=== PATIENT | female | born 2000 | race Caucasian/White ===

== ENCOUNTER 2021-04-22 14:38 | Emergency (ER) | payer BC, SELFPAY ==
[~2021-04-22] VITALS: Ht 170.2 cm; Wt 72.2 kg
[2021-04-22 14:45] VITALS: BP 122/65
--- NOTE | 2021-04-22 15:04 | NUR ---
FIRST CONTACT: PSYCH EVAL FOR DEPRESSION X2 WKS, HX OF DEPR W SI/ANX, REPORTS SI- NO PLAN, DENIES SA/HI OR RECENT NEW STRESSORS. PT TO ROOM WITH STEADY GAIT. MOTHER OUTSIDE ROOM. KRISHNA BROWN WORK INSIDE ROOM EVALUATING PT.
[2021-04-22] MEDS ORDERED: LORazepam 1MG TABLET ONE (15:35)
[2021-04-22 15:43] LABS: BASOPHILS % (AUTO) 1 % (0-1); EOSINOPHILS % (AUTO) 1 % (1-7); LYMPHOCYTES % (AUTO) 33 % (22-44); MEAN CORPUSCULAR HEMOGLOBIN 30.7 pg (27.0-34.8); MEAN CORPUSCULAR HGB CONC 34.8 g/dL (32.4-35.8); MEAN PLATELET VOLUME 8.7 fL (7.4-10.4); MONOCYTES % (AUTO) 4 % (2-9); NEUTROPHILS % (AUTO) 62 % (42-75); PLATELET COUNT 278 x10^3/uL (130-400); RED BLOOD COUNT 4.58 x10^6/uL (3.82-5.3)
--- NOTE | 2021-04-22 15:45 | NUR ---
KRISHNA BROWN WORK AND PT'S MOTHER AT BEDSIDE WORKING ON SAFE D/C PLAN. ROCAEL PERRIN AWARE.
[2021-04-22 15:52] LABS: ANION GAP 7 mmol/L (5-15); CALCIUM 8.7 mg/dL (8.5-10.1); CHLORIDE 106 mmol/L (98-107); CREATININE 0.72 mg/dL (0.55-1.02)
[2021-04-22 15:53] LABS: ALBUMIN 3.8 g/dL (3.4-5.0)
[2021-04-22] MEDS ORDERED: LORazepam 1MG TABLET PO ONE (16:00)
--- NOTE | 2021-04-22 16:44 | NUR ---
Patient AND Caregiver given discharge instructions and they have confirmed that they understand the instructions. Patient ambulatory with steady gait. NAD, all questions answered appropriately, denies additional needs at this time. No personal belongings left in room after discharge.
[2021-04-22 16:45] LABS: HCG UR SG 1.004 (1.003-1.030)
[2021-04-22 17:06] LABS: AMPHETAMINE SCREEN, URINE Negative (Negative); BARBITURATE SCREEN, URINE Negative (Negative); BENZODIAZEPINE SCREEN, URINE Negative (Negative); CANNABINOID SCREEN, URINE Negative (Negative); COCAINE SCREEN, URINE Negative (Negative); METHADONE SCREEN, URINE Negative (Negative); OPIATE SCREEN, URINE Negative (Negative)
== END 2021-04-22 16:46 | disposition home or self-care (01) ==
LOC: ED 16:40
DX: R45.851 Suicidal ideations (principal); F41.1 Generalized anxiety disorder
CPT/HCPCS: 36415; 80048; 80299; 80307; 80320; 80329; 81025; 82040; 85025; 99283; G0480